=== PATIENT | male | born 1970 | race Caucasian/White ===

== ENCOUNTER → 2020-05-30 | Outpatient (CLI) | payer BC ==
--- NOTE | 2020-05-30 11:23 | KCIC ---
EXAM: Left forearm, 2 views; left elbow, 3 views; left humerus, 2 views. HISTORY: Biceps tendon rupture. COMPARISON: None. FINDINGS: 2 views of the left forearm and humerus and 3 views of the left elbow are obtained. There i s no fracture, dislocation or subluxation. There is no elbow effusion. There is an enthesophyte along the olecranon at the triceps insertion. There is a tiny corticated ossicle inferior to the medial ep icondyle. There is a tiny benign osseous excrescence along the lateral upper condyle due to an enthes ophyte or osteochondroma. IMPRESSION: No acute osseous finding. Electronically signed by: Eli Headley MD (05/30/2020 11:21 AM) [id number]
== END ==
LOC: KCIC 10:21
PROVIDERS: ATTEND Physician Assistant Medical
DX: S46.212A Strain of muscle, fascia and tendon of other parts of biceps, left arm, initial encounter (principal); X58.XXXA Exposure to other specified factors, initial encounter; Y93.89 Activity, other specified; Y92.89 Other specified places as the place of occurrence of the external cause; Y99.8 Other external cause status
CPT/HCPCS: 73060; 73080; 73090